=== PATIENT | female | born 1965 | race Caucasian/White ===

== ENCOUNTER 2017-03-20 19:28 | Emergency (ER) | payer OTHER ==
[~2017-03-20] VITALS: Ht 170.2 cm; Wt 79.4 kg
[2017-03-20] MEDS ORDERED: LISI10TA2 PO (20:21)
[2017-03-20] MEDS ORDERED: ERGO50006 PO (20:21)
[2017-03-20] MEDS ORDERED: ATOR10TA66 PO (20:21)
[2017-03-20] MEDS ORDERED: VARE1TAB21 PO (20:21)
[2017-03-20] MEDS ORDERED: SPIR100T2 PO (20:21)
[2017-03-20] MEDS ORDERED: THYR300T PO (20:21)
[2017-03-20] MEDS ORDERED: ASPI81TA55 PO (20:22)
--- NOTE | 2017-03-20 20:31 | ED Psychosocial ---
General Chief Complaint: Cardiac/General Problems Stated Complaint: HIGH BP Nursing Triage Note: PT REPORTS INCREASED BLOOD PRESSURE THIS EVENING AND ELEVATED HEART RATE STARTING THIS EVENING. PT CAME IN THIS EVENING TO BE CHECKED OUT D/T RECENTLY LOSING HER FROM A HEART ATTACK. Source: patient, family (son) Exam Limitations: no limitations History of Present Illness Time seen by provider: 20:21 Initial Comments Patient present ER by private conveyance with her son and a chief complaint that tonight she was feeling a little off and has been worried recently with all the stresses of disposing of her parents a states as well as her recently passing away from a heart attack suddenly 3 months ago and she [place] to get moved into town. She has not had any chest pain, shortness of breath, nausea, sweats, diaphoresis, chills, diarrhea, constipation however she was checking her blood pressure tonight and she said it got up to 160s over 80s. She said her heart rate was around 90-100. She's never had a heart attack nor she had any stress test, echo etc. She doesn' t pertinent history of smoking which she is reducing currently on Chantix down to 5 cigarettes a day and hypothyroidism, hypertension for which she uses 10 mg lisinopril. The patient has quite a bit of stress and anxiety and worries about herself being so far away from town if something were to happen to her. She also worries that her children are all in hour and a half away. She had to go to [place] emergency room about a month ago for a similar episode when she was having a panic attack and difficulty sleeping and they gave her some Ativan. She is not on any kind of antianxiety medicines. Allergies and Home Medications Home Medications Aspirin 81 Mg Tablet.dr, 81 MG PO DAILY, (Reported) Atorvastatin Calcium 10 Mg Tablet, 10 MG PO DAILY, (Reported) Ergocalciferol (Vitamin D2) 50,000 Unit Capsule, 50,000 UNIT PO WEEK, (Reported) Lisinopril 10 Mg Tablet, 10 MG PO DAILY, (Reported) Spironolactone 100 Mg Tablet, 100 MG PO DAILY, (Reported) Thyroid,Pork 300 Mg Tablet, 300 MG PO DAILY, (Reported) Varenicline Tartrate 1 Each Tab.ds.pk, 1 MG PO BID, (Reported) Constitutional: No chills, No fever, No malaise Respiratory: No cough, No short of breath Cardiovascular: No chest pain, No edema, No palpitations, No syncope, No vascular heart diseas Gastrointestinal: No abdominal pain, No constipation, No diarrhea, No nausea, No vomiting Genitourinary: No discharge, No dysuria : No Musculoskeletal: No back pain, No joint pain Skin: No pruritus, No rash Psychiatric/Neurological: Denies Headache, Denies Numbness, Denies Paresthesia Past Tlgaexg-Rcvnhe-Pmzusa Hx Patient Social History Alcohol Use: Denies Use Recreational Drug Use: No Smoking Status: Current Everyday Smoker Type Used: Cigarettes (0.25 ppd) Recent Foreign Travel: No Contact w/Someone Who Travel: No Recent Infectious Disease Expo: No Reproductive System : No Physical Exam Vital Signs Vital Sign - Last 12Hours 03/20/17 20:06 Pulse 114 Resp 18 B/P (MAP) 123/84 (97) Pulse Ox 100 O2 Delivery Room Air Capillary Refill : Less Than 3 Seconds General Appearance: WD/WN, no apparent distress HEENT: PERRL/EOMI, pharynx normal Respiratory: chest non-tender, lungs clear, normal breath sounds, no respiratory distress, no accessory muscle use Cardiovascular: normal peripheral pulses, regular rate, rhythm, no edema Peripheral Pulses: 2+ Radial Pulses (R), 2+ Radial Pulses (L) Neurologic/Psychiatric: alert, oriented x 3, other (anxious affect) Appearance/Memory: appropriate appearance, appropriate insight, neat, no memory impairment Behavior/Eye Contact: cooperative, good eye contact, normal speech Thoughts/Hallucinations: normal thought pattern, no apparent hallucination Skin: normal color, warm/dry Progress/Results/Core Measures Results/Orders My Orders Orders - DIMAS BOYKIN Ekg Tracing (03/20/17 20:24) Vital Signs/I&O Vital Sign - Last 12Hours 03/20/17 20:06 Pulse 114 Resp 18 B/P (MAP) 123/84 (97) Pulse Ox 100 O2 Delivery Room Air Blood Pressure Mean: 97 Progress Note : Time: 20:29 Progress Note Denies suicidal ideation. She is certainly anxious about her health issues. We have directed her to look into getting her coronary artery disease risk stratified by starting with a in office stress test. Patient's blood pressure is 140-150 systolic here but she is rather stressed out and anxious so it is not reasonable to increase her lisinopril based on what I'm seeing. She says when she is resting her blood pressure runs around 140. She says she had lab work drawn last week that was normal except for her triglycerides are still up around 200. She is on atorvastatin. Sounds and she has good primary care follow- up. We have offered her a baseline EKG and recommendation to go back to her primary care physician to have her heart risk stratified with a stress test or we can send her to our aluminum sheet cutter and have them do some stress testing here in town and she has elected to use her primary care physician. We have also offered her citalopram start at a low dose and she can up the dose if she wants when she sees her primary care physician in the next 1-2 weeks. She does want to start citalopram. ECG Initial ECG Impression Date: Mar 20, 2017 Initial ECG Impression Time: 20:34 Initial ECG Rate: 93 Initial ECG Rhythm: Normal Sinus Initial ECG Intervals: Normal Initial ECG Impression: Normal, Nonspecific Changes Initial ECG Comparisson: No Previous ECG Available Comment No T-wave elevation or depression. Departure Impression Impression: Primary Impression: Anxiety about health Disposition: 01 HOME, SELF-CARE Condition: Stable Departure-Patient Inst. Decision time for Depature: 21:03 Referrals: NO,LOCAL PHYSICIAN (PCP/Family) Primary Care Physician Patient Instructions: Controlling Your Blood Pressure Through Lifestyle, High Blood Pressure (DC) Add. Discharge Instructions: Continue to check your blood pressure first thing in the morning when you're resting and to 4 cigarettes. Continue to work on reducing and quitting cigarette smoking. Follow up with your primary care physician in the next 1-2 weeks to discuss stratifying your coronary artery disease risk as well as management of your citalopram. Try and avoid checking your blood pressure throughout the day as this may only increase your anxiety. 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 All discharge instructions reviewed with patient and/or family. Voiced understanding. Scripts Citalopram Hydrobromide (Citalopram HBr) 10 Mg Tablet 10 MG PO DAILY for 30 Days, #30 TAB 0 Refills Prov: DIMAS BOYKIN 03/20/17 DIMAS BOYKIN Mar 20, 2017 20:30
[2017-03-20] MEDS ORDERED: CITA10TA7 PO (21:04)
[2017-03-20 21:09] VITALS: BP 139/87
== END 2017-03-20 21:19 | disposition home or self-care (01) ==
LOC: ER 19:31
DX: F41.9 Anxiety disorder, unspecified (principal); I25.2 Old myocardial infarction; F17.210 Nicotine dependence, cigarettes, uncomplicated; Z79.82 Long term (current) use of aspirin
CPT/HCPCS: 93005

== ENCOUNTER 2017-03-25 14:55 | Emergency (ER) | payer OTHER ==
[~2017-03-25] VITALS: Ht 160 cm; Wt 81.6 kg
[~2017-03-25 14:55] MED LIST: ASPI81TA55 PO; ATOR10TA66 PO; CITA10TA7 PO; ERGO50006 PO; LISI10TA2 PO; SPIR100T2 PO; THYR300T PO; VARE1TAB21 PO
[2017-03-25 15:13] LABS: BASOPHILS # (AUTO) 0.1 10^3/uL (0.0-0.1); BASOPHILS % (AUTO) 0 % (0-10); EOSINOPHILS # (AUTO) 0.2 10^3/uL (0.0-0.3); EOSINOPHILS % (AUTO) 1 % (0-10); HEMATOCRIT 40 % (35-52); HEMOGLOBIN 14.4 G/DL (11.5-16.0); LYMPHOCYTES # (AUTO) 1.9 X 10^3 (1.0-4.0); LYMPHOCYTES % (AUTO) 12 % (12-44); MEAN CORPUSCULAR HEMOGLOBIN 31 PG (25-34); MEAN CORPUSCULAR HGB CONC 36 G/DL (32-36); MEAN CORPUSCULAR VOLUME 86 FL (80-99); MEAN PLATELET VOLUME 8.4 FL (7.4-10.4); MONOCYTES # (AUTO) 1.2 X 10^3 (0.0-1.0); MONOCYTES % (AUTO) 7 % (0-12); NEUTROPHILS # (AUTO) 13.2 X 10^3 (1.8-7.8); NEUTROPHILS % (AUTO) 80 % (42-75); PLATELET COUNT 603 10^3/uL (130-400); RED BLOOD COUNT 4.59 10^6/uL (4.35-5.85); RED CELL DISTRIBUTION WIDTH 13.1 % (10.0-14.5); WHITE BLOOD COUNT 16.5 10^3/uL (4.3-11.0)
--- NOTE | 2017-03-25 15:18 | ED Cardiac General ---
History of Present Illness General Chief Complaint: Cardiac/General Problems Stated Complaint: ELVATED HEART RATE AND BLOOD PRESSURE Nursing Triage Note: pt reports palpitations starting at 1430. pt reports she started to feel dizzy/weak and felt her hr go up. pt denies any pain or soa Source: patient Exam Limitations: no limitations History of Present Illness Time seen by provider: 15:18 Timing/Duration: other Activities at Onset: none, emotional stress Allergies and Home Medications Allergies Coded Allergies: No Known Drug Allergies (Unverified , 03/25/17) Home Medications Aspirin 81 Mg Tablet.dr, 81 MG PO DAILY, (Reported) Atorvastatin Calcium 10 Mg Tablet, 10 MG PO DAILY, (Reported) Citalopram Hydrobromide 10 Mg Tablet, 10 MG PO DAILY for 30 Days, #30 Ref 0 Prescribed by: DIMAS PORTER on 03/20/172103 Ergocalciferol (Vitamin D2) 50,000 Unit Capsule, 50,000 UNIT PO WEEK, (Reported) Lisinopril 10 Mg Tablet, 10 MG PO DAILY, (Reported) Spironolactone 100 Mg Tablet, 100 MG PO DAILY, (Reported) Thyroid,Pork 300 Mg Tablet, 300 MG PO DAILY, (Reported) Varenicline Tartrate 1 Each Tab.ds.pk, 1 MG PO BID, (Reported) Review of Systems Constitutional: see HPI EENTM: No Symptoms Reported Respiratory: SOA at Rest Cardiovascular: Palpitations Gastrointestinal: No Symptoms Reported Genitourinary: No Symptoms Reported Musculoskeletal: no symptoms reported Skin: no symptoms reported Psychiatric/Neurological: No Symptoms Reported Endocrine: No Symptoms Reported Hematologic/Lymphatic: No Symptoms Reported Past Rgdopkq-Vvgjny-Zaddmb Hx Patient Social History Alcohol Use: Regular Use Number of Drinks Today: Alcohol Beverage of Choice: Rum, Wine Recreational Drug Use: No Smoking Status: Current Everyday Smoker Type Used: Cigarettes 2nd Hand Smoke Exposure: Yes Recent Foreign Travel: No Contact w/Someone Who Travel: No Recent Infectious Disease Expo: No Recent Hopitalizations: No Physical Abuse: No Sexual Abuse: No Mistreated: No Immunizations Up To Date Tetanus Booster (TDap): More than 5yrs Date of Influenza Vaccine: Nov 18, 2016 Seasonal Allergies Seasonal Allergies: Yes Surgeries History of Surgeries: Yes (SINUS, dental, ) Surgeries: Tubal Ligation Respiratory History of Respiratory Disorde: No Cardiovascular History of Cardiac Disorders: No Cardiac Disorders: High Cholesterol, Hypertension Neurological History of Neurological Disord: No Genitourinary History of Genitourinary Disor: No Gastrointestinal History of Gastrointestinal Di: No Musculoskeletal History of Musculoskeletal Dis: No Endocrine History of Endocrine Disorders: Yes Endocrine Disorders: Hypothyroidsim HEENT History of HEENT Disorders: No Cancer History of Cancer: No Psychosocial History of Psychiatric Problem: No Suicide Risk Score: 0 Integumentary History of Skin or Integumenta: No Blood Transfusions History of Blood Disorders: No Physical Exam Vital Signs Vital Sign - Last 12Hours 03/25/17 15:02 Temp 98.0 Pulse 113 Resp 18 B/P (MAP) 187/89 (121) Pulse Ox 97 Capillary Refill : Less Than 3 Seconds General Appearance: Anxious, Other (rapid speech) HEENT: Normal ENT Inspection Neck: Normal Inspection Respiratory: Chest Non Tender, Lungs Clear, Normal Breath Sounds, No Accessory Muscle Use, No Respiratory Distress Cardiovascular: Other Gastrointestinal: Normal Bowel Sounds, No Organomegaly, No Pulsatile Mass, Non Tender Extremity: Normal Capillary Refill, Normal Inspection, Normal Range of Motion, Non Tender, No Calf Tenderness, No Pedal Edema Neurologic/Psychiatric: Alert, Oriented x3, No Motor/Sensory Deficits, Normal Mood/Affect Skin: Normal Color, Warm/Dry Lymphatic: No Adenopathy Progress/Results/Core Measures Results/Orders Lab Results Laboratory Tests Test 03/25/17 15:05 Range/Units White Blood Count 16.5 H 4.3-11.0 10^3/uL Red Blood Count 4.59 4.35-5.85 10^6/uL Hemoglobin 14.4 11.5-16.0 G/DL Hematocrit 40 35-52 % Mean Corpuscular Volume 86 80-99 FL Mean Corpuscular Hemoglobin 31 25-34 PG Mean Corpuscular Hemoglobin Concent 36 32-36 G/DL Red Cell Distribution Width 13.1 10.0-14.5 % Platelet Count 603 H 130-400 10^3/uL Mean Platelet Volume 8.4 7.4-10.4 FL Neutrophils (%) (Auto) 80 H 42-75 % Lymphocytes (%) (Auto) 12 12-44 % Monocytes (%) (Auto) 7 0-12 % Eosinophils (%) (Auto) 1 0-10 % Basophils (%) (Auto) 0 0-10 % Neutrophils # (Auto) 13.2 H 1.8-7.8 X 10^3 Lymphocytes # (Auto) 1.9 1.0-4.0 X 10^3 Monocytes # (Auto) 1.2 H 0.0-1.0 X 10^3 Eosinophils # (Auto) 0.2 0.0-0.3 10^3/uL Basophils # (Auto) 0.1 0.0-0.1 10^3/uL Neutrophils % (Manual) 72 % Lymphocytes % (Manual) 20 % Monocytes % (Manual) 6 % Eosinophils % (Manual) 0 % Basophils % (Manual) 0 % Band Neutrophils 2 % Blood Morphology Comment NORMAL Sodium Level 135 135-145 MMOL/L Potassium Level 3.7 3.6-5.0 MMOL/L Chloride Level 98 98-107 MMOL/L Carbon Dioxide Level 22 21-32 MMOL/L Anion Gap 15 H 5-14 MMOL/L Blood Urea Nitrogen 12 7-18 MG/DL Creatinine 1.10 0.60-1.30 MG/DL Estimat Glomerular Filtration Rate 52 BUN/Creatinine Ratio 11 Glucose Level 160 H 70-105 MG/DL Calcium Level 10.1 8.5-10.1 MG/DL Total Bilirubin 0.6 0.1-1.0 MG/DL Aspartate Amino Transf (AST/SGOT) 15 5-34 U/L Alanine Aminotransferase (ALT/SGPT) 18 0-55 U/L Alkaline Phosphatase 101 40-136 U/L Troponin I < 0.30 <0.30 NG/ML Total Protein 8.1 6.4-8.2 GM/DL Albumin 4.6 H 3.2-4.5 GM/DL My Orders Orders - HUBERT HANNA MD Ekg Tracing (03/25/17 14:59) Cbc With Automated Diff (03/25/17 14:59) Comprehensive Metabolic Panel (03/25/17 14:59) Troponin I (03/25/17 14:59) Chest 1 View, Ap/Pa Only (03/25/17 14:59) Manual Differential (03/25/17 15:05) Vital Signs/I&O Vital Sign - Last 12Hours 03/25/17 15:02 Temp 98.0 Pulse 113 Resp 18 B/P (MAP) 187/89 (121) Pulse Ox 97 Blood Pressure Mean: 121 Departure Communication (Admissions) Progress Notes The patient related that the symptoms had been present in varying frequency since at least November. 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 In addition her unexpectedly of cardiac causes in November 2016. Today she was sitting at a [facility] event which included her grandchildren. She became increasingly aware of her heart pounding and as if she were about to pass out. She had brought her home blood pressure monitor with her which revealed her blood pressure to be up and her pulse in the 110- 120 range. She was seen here on Monday of this week and bile standards diagnosed as an anxiety reaction. She then saw her provider later this week and checked out well while she was there. She has an appointment with Dr. Aleman of cardiology for further evaluation Monday of the coming week. Today she also describes some numbness in her left fingertips but no circumoral numbness. Impression Impression: Primary Impression: sinus tachycardia Additional Impression: anxiety attack Disposition: HOME, SELF-CARE Condition: Stable/Unchanged Departure-Patient Inst. Decision time for Depature: 16:05 Referrals: NO,LOCAL PHYSICIAN (PCP) Primary Care Physician Add. Discharge Instructions: All discharge instructions reviewed with patient and/or family. Voiced understanding. Keep appointment with Dr. Aleman on Monday. Consider doubling the dose of the medication that Dr. Porter gave you Monday You have been given a small number of Ativan. takethese only when required and not more than twice daily Scripts Lorazepam (Ativan) 0.5 Mg Tablet 0.5 MG PO twice a day Y for anxiety, #10 TAB Prov: HUBERT HANNA MD 03/25/17 HUBERT HANNA MD Mar 25, 2017 15:18
--- NOTE | 2017-03-25 15:26 | Diagnostic Imaging Report ---
PATIENT HISTORY: Tachycardia, elevated blood pressure, tingling in left fingers. TECHNIQUE: Single view of the chest. COMPARISON: None. FINDINGS: The lung volumes are normal. No focal consolidation is seen. No large pleural effusion or pneumothorax is seen. The cardiomediastinal silhouette is normal in size and contour. No acute osseous abnormality is seen. IMPRESSION: No acute pulmonary abnormality seen. Dictated by: Dictated on workstation # [id number]
[2017-03-25 15:32] LABS: ALANINE AMINOTRANSFERASE 18 U/L (0-55); ALBUMIN 4.6 GM/DL (3.2-4.5); ALKALINE PHOSPHATASE 101 U/L (40-136); BILIRUBIN,TOTAL 0.6 MG/DL (0.1-1.0); BUN/CREATININE RATIO 11; CALCIUM 10.1 MG/DL (8.5-10.1); CARBON DIOXIDE 22 MMOL/L (21-32); CHLORIDE 98 MMOL/L (98-107); GFR ESTIMATED 52; GLUCOSE 160 MG/DL (70-105); POTASSIUM 3.7 MMOL/L (3.6-5.0); SODIUM 135 MMOL/L (135-145); TOTAL PROTEIN 8.1 GM/DL (6.4-8.2)
[2017-03-25 15:35] LABS: BAND NEUTROPHILS 2 %; BASOPHILS % (MANUAL) 0 %; EOSINOPHILS % (MANUAL) 0 %; LYMPHOCYTES % (MANUAL) 20 %; MONOCYTES % (MANUAL) 6 %; NEUTROPHILS % (MANUAL) 72 %; RBC MORPH NORMAL
[2017-03-25] MEDS ORDERED: LORA-404 PO (16:09)
[2017-03-25] MEDS ORDERED: LORazepam 0.5 MG (ATIVAN) TABLET PO ONE (16:30)
[2017-03-25 16:36] VITALS: BP 137/84
== END 2017-03-25 16:38 | disposition home or self-care (01) ==
LOC: EDUNIT# 14:55 → ER 14:56
DX: F41.0 Panic disorder [episodic paroxysmal anxiety] (principal); R00.0 Tachycardia, unspecified; E03.9 Hypothyroidism, unspecified; E78.00 Pure hypercholesterolemia, unspecified; I10 Essential (primary) hypertension; F17.210 Nicotine dependence, cigarettes, uncomplicated; Z79.82 Long term (current) use of aspirin; Z98.51 Tubal ligation status
CPT/HCPCS: 36415; 71045; 80053; 84484; 85007; 85027; 93005

== ENCOUNTER 2017-04-03 08:41 | Outpatient (RCR) | payer OTHER ==
[~2017-04-03 08:41] MED LIST changes: +LORA-404 PO; -SPIR100T2 PO; +SPIR100T4 PO
== END 2017-07-02 | disposition home or self-care (01) ==
LOC: CARD 08:41
PROVIDERS: ATTEND Internal Medicine Interventional Cardiology
DX: R00.2 Palpitations (principal); I10 Essential (primary) hypertension; E78.5 Hyperlipidemia, unspecified; E66.9 Obesity, unspecified; Z72.0 Tobacco use
CPT/HCPCS: 93225; 93226

== ENCOUNTER 2017-05-01 08:28 | Outpatient (RCR) | payer OTHER | END 2017-07-04 | disposition home or self-care (01) | LOC: CARD 08:28 | PROVIDERS: ATTEND Internal Medicine Interventional Cardiology | DX: R00.2 Palpitations (principal) | CPT/HCPCS: 93270 ==

== ENCOUNTER → 2017-05-08 | Outpatient (CLI) | payer OTHER ==
[~2017-05-08] MED LIST changes: +SPIR100T2 PO; -SPIR100T4 PO
== END ==
LOC: CARD 09:44
PROVIDERS: ATTEND Internal Medicine Interventional Cardiology
DX: I10 Essential (primary) hypertension (principal); E78.5 Hyperlipidemia, unspecified; R00.2 Palpitations; E66.9 Obesity, unspecified; Z72.0 Tobacco use
CPT/HCPCS: 93306

== ENCOUNTER → 2017-09-25 | Outpatient (CLI) | payer OTHER ==
[~2017-09-25] MED LIST changes: -SPIR100T2 PO; +SPIR100T4 PO
== END ==
LOC: CARD 14:08
PROVIDERS: ATTEND Internal Medicine Interventional Cardiology
DX: R00.2 Palpitations (principal)